=== PATIENT | male | born 1975 | race Caucasian/White ===

== ENCOUNTER 2021-11-20 07:21 | Day surgery (SDC) | payer MEDICARE, OTHER ==
[2021-11-19 10:58] VITALS: BMI 23.6
--- NOTE | 2021-11-20 06:39 | P.GSHP ---
History of Present Illness H&P Date: 11/20/21 Chief Complaint: Abdominal pain The patient is a 46-year-old white male with a history of left testicular cancer. He underwent a left orchiectomy 9 years ago and did not receive any adjuvant therapy. He has had no recurrences. He has a history of cerebral palsy and is noncommunicative. He was admitted last month with acute onset of abdominal pain. He had a known right renal calculus. Computed tomography scan showed mild to moderate right hydronephrosis due to a 5 x 8 mm right distal ureteral calculus. A 3 mm nonobstructing right renal calculus was also seen. He was found to have an obstructing calculus at the level of the SI joint, but it could not be reached ureteroscopically and therefore a ureteral stent was placed. - Constitutional Constitutional: Denies chills, Denies fever - Cardiovascular Cardiovascular: Denies chest pain, Denies palpitations - Respiratory Respiratory: Denies cough, Denies dyspnea - Genitourinary (Male) Genitourinary: Denies dysuria, Denies hematuria Past Medical History Past Medical History: Cancer, Seizure Disorder Additional Past Medical History / Comment(s): Hx testicular cancer 7 yrs ago with surgery. Cerebral Palsy, has shunt. Non verbal, immobile, in wheelchair, only has use of right arm, chokes easily, food needs to be cut up very small. History of Any Multi-Drug Resistant Organisms: None Reported Additional Past Surgical History / Comment(s): Shunt for cerebral palsy, testicle removed. Past Anesthesia/Blood Transfusion Reactions: Family History of Problems w/ Anesthesia Additional Past Anesthesia/Blood Transfusion Reaction / Comment(s): Dad had problems with hallucinations after anesthesia. Past Psychological History: No Psychological Hx Reported Smoking Status: Never smoker Past Alcohol Use History: None Reported Past Drug Use History: None Reported - Past Family History Father Family Medical History: No Reported History Medications and Allergies Home Medications Medication Instructions Recorded Confirmed Type Lacosamide [Vimpat Oral Soln] 10 mg PO BID 11/19/21 11/19/21 History Allergies Allergy/AdvReac Type Severity Reaction Status Date / Time No Known Allergies Allergy Verified 11/19/21 10:25 Surgical - Exam - General well developed, well nourished, no distress - Neck no masses, trachea midline - Respiratory normal respiratory effort - Abdomen Abdomen: soft, non tender, no guarding, no rigid, no rebound - Genitourinary normal penis with no external lesions, testicles non-tender - Psychiatric oriented to time, oriented to person, oriented to place, speech is normal, memory intact Results - Imaging CT scan - abdomen: report reviewed, image reviewed Assessment and Plan (1) Calculus of ureter Status: Acute Code(s): N20.1 - CALCULUS OF URETER SNOMED Code(s): 19988971 (2) Calculus of kidney Status: Acute Code(s): N20.0 - CALCULUS OF KIDNEY SNOMED Code(s): 27212150 Plan: Cystoscopy, right ureteral stent removal, right ureteroscopy with Holmium laser lithotripsy and possible stone basketing. The procedure has been reviewed in detail with Edilberto's parents. They have been made aware of potential risks, which include anesthesia, bleeding, infection, ureteral injury, and inability to successfully remove the calculus.
[~2021-11-20 07:21] MED LIST: DEXAMETHASONE SOD PHOSPHATE 4 MG/ML 1 ML VIAL IV ONE; HYDROmorphone 0.5 MG/0.5 ML SYRINGE IVP PRN; LACTATED RINGERS 1,000 ML IV SCH; LIDOCAINE 1% (10MG/ML) FOR IV START INTRADERMA PRN; MIDAZOLAM 2 MG/2 ML VIAL IV PRN; ONDANSETRON 4 MG/2 ML VIAL IVP ONE
--- NOTE | 2021-11-20 09:11 | XR ---
EXAMINATION TYPE: XR KUB DATE OF EXAM: 11/20/2021 COMPARISON: NONE INDICATION: Right ureteric stone TECHNIQUE: AP view of the abdomen and pelvis. FINDINGS: Suspected left-sided DIRECTOR OF AGRONOMY shunt coursing to the right side of the abdomen with the tip seen in the left side of the abdomen. Right-sided double-J ureteric stent. No definite radiodense urinary calculi. Significant gaseous distention of the colon and to lesser ext ent the small bowel almost completely obscuring the renal shadows. Renal or ureteric calculi cannot be excluded by this x-ray. Levoscoliosis of the lumbar spine. IMPRESSION: As above.
[2021-11-20] MEDS ORDERED: fentaNYL (PF) 50 MCG/ML 2 ML AMP IVP ONE (09:50)
[2021-11-20] MEDS ORDERED: PROPOFOL 10 MG/ML 20 ML VIAL IV ONE (10:09)
[2021-11-20] MEDS ORDERED: MIDAZOLAM 2 MG/2 ML VIAL ONE (10:09)
[2021-11-20] MEDS ORDERED: LIDOCAINE 2% INJ 20 MG/ML (2 ML VIAL) ONE (10:09)
[2021-11-20] MEDS ORDERED: PHENYLEPHRINE-0.9% NACL SYG 1,000 MCG/10 ML SYRINGE ONE (10:09)
[2021-11-20] MEDS ORDERED: fentaNYL (PF) 50 MCG/ML 2 ML AMP ONE (10:09)
[2021-11-20 12:08] VITALS: TEMP 97.5
--- NOTE | 2021-11-20 12:29 | P.OP ---
Date of Procedure: 11/20/21 Preoperative Diagnosis: Right renal calculus, right ureteral calculus Postoperative Diagnosis: Same Procedure(s) Performed: Cystoscopy, right ureteroscopy with Holmium laser lithotripsy and stone basketing, right ureteral stent change Anesthesia: GETA Surgeon: Medhat Ramirez Estimated Blood Loss (ml): 10 IV fluids (ml): 600 Pathology: other (Calculus fragments, sent for chemical analysis) Condition: stable Disposition: PACU Indications for Procedure: The patient is a 46-year-old white male with a history of left testicular cancer. He underwent a left orchiectomy 9 years ago and did not receive any adjuvant therapy. He has had no recurrences. He has a history of cerebral palsy and is noncommunicative. He was admitted last month with acute onset of abdominal pain. He had a known right renal calculus. Computed tomography scan showed mild to moderate right hydronephrosis due to a 5 x 8 mm right distal ureteral calculus. A 3 mm nonobstructing right renal calculus was also seen. He was found to have an obstructing calculus at the level of the SI joint, but it could not be reached ureteroscopically and therefore a ureteral stent was placed. Operative Findings: Right ureteral calculus at the level of the iliac vessels, fragmented and removed completely. A right renal calculus was seen and removed, though was unclear whether this may have been a fragment of the ureteral calculus which refluxed into the kidney. Description of Procedure: The patient was taken to the operating room and placed in the dorsolithotomy position, with legs supported in Ronald stirrups. The external genitalia was prepped and draped sterilely. The 30 lens was used to introduce the 21-Qatari Valdez cystoscopic sheath through the urethra and into the bladder under direct vision. The prostatic urethra showed evidence of mild lateral lobe enlargement. The bladder was examined in its entirety. No abnormalities were seen. Grasping forceps were used to grasp the distal end of the right ureteral stent, which was removed along with the cystoscope. A 0.038 inch Glidewire was passed through the stent and up to the right renal pelvis. The stent was removed, and an 11/13-Qatari ureteral access catheter was passed over the wire, up to the level of the calculus. The Valdez Setred flexible ureteroscope was then passed through the ureteral access catheter sheath, up to the stone. The 200 micron Holmium laser probe was passed through the ureteroscope, and lithotripsy was performed. The calculus fragmented readily. Once it was completely fragmented, several fragments refluxed proximally. The ureteroscope was advanced up to the right kidney. Each calyx was examined. Only one calculus was seen, within a mid pole calyx, and this appeared to have been a fragment from the ureteral calculus. A 1.9-Qatari nitinol basket was used to grasp this fragment and remove it. Next, each of the remaining calculus fragments within the ureter were removed via stone basketing. The ureteral access catheter sheath came out, and the Valdez semirigid ureteroscope was passed into the bladder under direct vision to inspect the distal ureter. This confirmed that there were no residual calculus fragments seen within the ureter, and there was no evidence of ureteral perforation. The Glidewire was passed up to the right renal pelvis, and the ureteroscope was removed. The Glidewire was backloaded into the cystoscope, which was passed into the bladder. A 22 cm, 6- Qatari double-J ureteral stent was placed over the wire. Proper stent positioning was verified fluoroscopically and endoscopically. The bladder was emptied and the cystoscope removed. The string was left attached to the stent, and was secured to the penis using a Tegaderm dressing. The patient tolerated the procedure well and was taken to the recovery room in stable condition. DEEDEE JARAMILLO Report: Procedure Acuity: Elective Stone Size and Location: Ureteral Dilation: No Ureteral Access Sheath Used: Yes Stone Sent for Analysis: Yes All Stones/Fragments Were Removed with a Basket: Yes Complications: No Preoperative Antibiotics Given: Yes Stent Placed: Yes If Stent Placed, Was String Left Attached: Yes If Stent Placed, When is it to be Removed: 1 week Discharge Medications: None
[2021-11-20 12:34] VITALS: RESP 16
[2021-11-20 13:11] VITALS: BP 125/86; PULSE 99
--- NOTE | 2021-11-21 22:13 | FL ---
EXAMINATION TYPE: FL guidance operating room DATE OF EXAM: 11/20/2021 CLINICAL HISTORY: Right ureteral stone TECHNIQUE: Fluoroscopic-guided procedure COMPARISON: X-ray dated 11/03/2021 at 7:19 AM FINDINGS: Fluoroscopic guidance was provided during the procedure. A total of 17 seconds of fluorosc opic time was utilized during the procedure and 2 spot images were acquired. IMPRESSION: As Above.
== END 2021-11-20 13:29 | disposition home or self-care (01) ==
LOC: OR 07:21 → EEVIPCON 09:20 → OR 13:29
PROVIDERS: ATTEND Urology
DX: N13.2 Hydronephrosis with renal and ureteral calculous obstruction (principal); Z85.47 Personal history of malignant neoplasm of testis; Z90.79 Acquired absence of other genital organ(s); G80.9 Cerebral palsy, unspecified; G40.909 Epilepsy, unspecified, not intractable, without status epilepticus; Z79.899 Other long term (current) drug therapy
CPT/HCPCS: 82365; 74018; 52356; C1769; C2625; J2250; J1100; J2405; J0690; J3010; J2370; J2704; J2001